=== PATIENT | female | born 1955 | race Caucasian/White ===

== ENCOUNTER 2017-06-02 10:03 | Emergency (ER) | payer OTHER ==
[~2017-06-02] VITALS: Ht 160 cm; Wt 104.0 kg
[~2017-06-02 10:03] MED LIST: CARDIZEM CD120 M1 PO; CITALOPRAM HBR20 MG; COMBIVENT RESPIM4 GM IH; CYCLOBENZAPRINE 10 M; DIGOXIN250 MCG PO; FLONASE16 G1 BOTH NARES; FLONASE16 GM; GABAPENTIN 300 MG; GLUCOPHAGE1000 MG PO; IBUPROFEN600 MG; JANUVIA25 M1 PO; K-DUR10 MEQ PO; LEVAQUIN500 MG PO; LIPITOR40 MG PO; LISINOPRIL-HCTZ 20-1; LORTAB 5-325 M1 EACH PO; LOVAZA1 GM; MEDROL DOSEPAK4 MG PO; MOTRIN800 MG PO; NEURONTIN300 MG PO; NICOTINE PATCH1 EAC2 TD; NORVASC10 MG PO; PEN-VEE K,VEET500 MG PO; PREDNISONE10 MG PO; PRISTIQ100 MG PO; SPIRIVA RESPIMAT4 GM IH; SYMBICORT60 INHALAT; SYMBICORT60 INHALAT IH; TYLENOL REGULA325 MG PO; ULTRACET1 TABLET PO; ULTRAM50 MG PO; XARELTO20 MG PO; ZESTRIL40 MG PO; ZOFRAN4 MG PO; ZYRTEC10 M3 PO
[2017-06-02] MEDS ORDERED: KEFLEX500 MG PO (13:11)
[2017-06-02 13:26] VITALS: BP 150/79
== END 2017-06-02 13:26 | disposition home or self-care (01) ==
LOC: EME 10:03
DX: S02.40CA Maxillary fracture, right side, initial encounter for closed fracture (principal); S90.32XA Contusion of left foot, initial encounter; S00.11XA Contusion of right eyelid and periocular area, initial encounter; S80.211A Abrasion, right knee, initial encounter; M79.602 Pain in left arm; M25.511 Pain in right shoulder; M54.2 Cervicalgia; Y04.0XXA Assault by unarmed brawl or fight, initial encounter; Y07.499 Other family member, perpetrator of maltreatment and neglect; I10 Essential (primary) hypertension; J44.9 Chronic obstructive pulmonary disease, unspecified; E11.9 Type 2 diabetes mellitus without complications; Z79.84 Long term (current) use of oral hypoglycemic drugs; Z79.82 Long term (current) use of aspirin; F17.200 Nicotine dependence, unspecified, uncomplicated
CPT/HCPCS: 70450; 70486; 72125; 73110; 73130; 73564; 73630; 99281; 99284

== ENCOUNTER 2017-08-18 02:47 | Inpatient (IN) | payer OTHER ==
[~2017-08-18] VITALS: Ht 160 cm; Wt 111.0 kg
[~2017-08-18 02:47] MED LIST changes: +KEFLEX500 MG PO
[2017-08-18 03:18] LABS: HEMATOCRIT 41.6 % (36.0-46.0); MCH 30.1 PG (29.0-34.0); MCHC 32.9 G/DL (30.0-36.0); MCV 91.4 FL (83-99); MEAN PLAT.VOLUME 11.4 uM^3 (9.5-12.4); PLATELET COUNT 185 K/uL (156-360); RBC DIS.WIDTH-CV 15.2 % (11.8-14.6); RBC DIS.WIDTH-SD 51.7 % (39-53); RED BLOOD COUNT 4.55 M/uL (3.80-5.20); WHITE BLOOD COUNT 12.8 K/uL (4.1-10.2)
[2017-08-18 03:24] LABS: INTER. NORMALIZED RATIO 0.9; PROTHROMBIN TIME 10.3 SEC (10.2-12.9)
[2017-08-18 03:27] LABS: PTT 29.8 SEC (25-37)
[2017-08-18 03:32] LABS: CHLORIDE 104 mEq/L (99-109); POTASSIUM 3.3 mEq/L (3.7-5.4); SODIUM 140 mEq/L (136-147)
[2017-08-18 03:35] LABS: GLUCOSE 229 mg/dL (70-99)
[2017-08-18 03:36] LABS: ANION GAP 15 MEQ/L (2-14); TOTAL BILIRUBIN 0.3 mg/dL (0.0-1.0)
[2017-08-18 03:38] LABS: ALKALINE PHOSPHATASE 109 IU/L (3-129); GFR ESTIMATE (CALCULATED) > 59 mL/min/
[2017-08-18 03:39] LABS: UREA NITROGEN (BUN) 24 mg/dL (9-23)
[2017-08-18 03:41] LABS: TROP-I INTERPRETATION NEGATIVE; TROPONIN-I 0.01 ng/mL (0.0-0.30)
[2017-08-18 03:42] LABS: LIPASE 47 U/L (1.0-51.0)
[2017-08-18] MEDS ORDERED: LITE COAT ASPI325 M1 PO (08:11)
[2017-08-18] MEDS ORDERED: GABAPENTIN300 MG PO (08:15)
[2017-08-18] MEDS ORDERED: AMARYL2 MG PO (08:17)
[2017-08-18] MEDS ORDERED: HYDROCHLOROTH12.5 M3 PO (08:18)
[2017-08-18 08:20] LABS: MAGNESIUM 1.8 mg/dL (1.3-2.7)
[2017-08-18] MEDS ORDERED: NEO-POLYMYXIN-H10 ML RIGHT EAR (08:20)
[2017-08-18] MEDS ORDERED: BUPROPION XL150 MG PO (08:20)
[2017-08-18] MEDS ORDERED: IBUPROFEN600 MG PO (08:21)
[2017-08-18] MEDS ORDERED: LOSARTAN POTAS100 MG PO (08:22)
[2017-08-18] MEDS ORDERED: TRAMADOL HCL50 MG PO (08:22)
[2017-08-18] MEDS ORDERED: KENALOG,ARISTOC80 GM TP (08:22)
[2017-08-18] MEDS ORDERED: VITAMIN D35000 UNIT PO (08:23)
[2017-08-18] MEDS ORDERED: OMEPRAZOLE20 MG PO (08:24)
[2017-08-18] MEDS ORDERED: BUSPIRONE HCL10 MG PO (08:25)
[2017-08-18] MEDS ORDERED: ASCORBIC ACID100 MG PO (08:25)
[2017-08-18 10:37] LABS: TROP-I INTERPRETATION NEGATIVE; TROPONIN-I 0.01 ng/mL (0.0-0.30)
[2017-08-18 15:17] LABS: POINT-OF-CARE METER ID UU13113747
[2017-08-18 15:40] VITALS: BP 134/64
[2017-08-18 16:31] LABS: TROP-I INTERPRETATION NEGATIVE; TROPONIN-I < 0.01 ng/mL (0.0-0.30)
[2017-08-18 17:17] LABS: POINT-OF-CARE METER ID UU14174216
[2017-08-18 19:00] VITALS: BP 156/66
[2017-08-18 21:38] LABS: TROP-I INTERPRETATION NEGATIVE; TROPONIN-I < 0.01 ng/mL (0.0-0.30)
[2017-08-18 22:00] LABS: GLUCOSE 472 mg/dL (70-99)
[2017-08-18 23:49] VITALS: BP 144/85
[2017-08-19 01:40] LABS: ADD MIUA? NO; BILIRUBIN NEGATIVE; BLOOD NEGATIVE; COLOR STRAW ((YELLOW)); GLUCOSE (STRIP) >=500; KETONES NEGATIVE; LEUKOCYTES NEGATIVE; NITRITE NEGATIVE; PROTEIN (STRIP) NEGATIVE; SPECIFIC GRAVITY 1.024 (1.000-1.030); UROBILINOGEN 0.2 MG/DL (0.2-1.0)
[2017-08-19 02:15] LABS: POINT-OF-CARE METER ID UU13113698
[2017-08-19 04:00] VITALS: BP 132/63
[2017-08-19 04:38] LABS: EOSINOPHIL (%) 0 % (0-5); HEMATOCRIT 37.5 % (36.0-46.0); IMMATURE GRANULOCYTE (%) 0.6 % (0.0-0.7); IMMATURE GRANULOCYTE COUNT 0.1 K/uL; INSTRUMENT ABS NEUTROPHIL CT 10.1 K/uL; LYMPHOCYTE COUNT 0.7 K/uL (1.0-2.8); MCH 29.8 PG (29.0-34.0); MCHC 32.5 G/DL (30.0-36.0); MCV 91.7 FL (83-99); MEAN PLAT.VOLUME 11.4 uM^3 (9.5-12.4); MONOCYTE (%) 2.3 % (3-12); MONOCYTE COUNT 0.3 K/uL (0-0.8); NEUTROPHIL (%) 90.5 % (45-76); NEUTROPHIL COUNT 10.1 K/uL (1.8-6.4); PLATELET COUNT 154 K/uL (156-360); RBC DIS.WIDTH-CV 15.1 % (11.8-14.6); RBC DIS.WIDTH-SD 51.1 % (39-53); RED BLOOD COUNT 4.09 M/uL (3.80-5.20); WHITE BLOOD COUNT 11.1 K/uL (4.1-10.2)
[2017-08-19 04:51] LABS: CHLORIDE 109 mEq/L (99-109); SODIUM 141 mEq/L (136-147)
[2017-08-19 04:53] LABS: GLUCOSE 314 mg/dL (70-99)
[2017-08-19 04:56] LABS: ALKALINE PHOSPHATASE 99 IU/L (3-129)
[2017-08-19 04:57] LABS: GFR ESTIMATE (CALCULATED) 53 mL/min/
[2017-08-19 04:58] LABS: UREA NITROGEN (BUN) 24 mg/dL (9-23)
[2017-08-19 05:09] LABS: ANION GAP 8 MEQ/L (2-14)
[2017-08-19 05:15] LABS: POTASSIUM 4.4 mEq/L (3.7-5.4); TOTAL BILIRUBIN 0.1 mg/dL (0.0-1.0)
[2017-08-19 06:25] LABS: POINT-OF-CARE METER ID UU13113781
[2017-08-19 06:53] LABS: Estimated Average Glucose 154 mg/dL (70-123)
[2017-08-19 07:25] VITALS: BP 145/73
[2017-08-19 07:52] LABS: POINT-OF-CARE METER ID UU14174216
[2017-08-19 10:51] LABS: POINT-OF-CARE METER ID UU14174216
[2017-08-19 11:08] VITALS: BP 145/68
[2017-08-19 11:40] LABS: POINT-OF-CARE METER ID UU14174216
[2017-08-19 15:37] VITALS: BP 129/74
[2017-08-19 16:21] LABS: POINT-OF-CARE METER ID UU14174216
[2017-08-19 19:52] VITALS: BP 169/74
[2017-08-19 20:53] LABS: POINT-OF-CARE METER ID UU14174216
[2017-08-19 22:58] VITALS: BP 163/81
[2017-08-20 04:27] VITALS: BP 139/67
[2017-08-20 07:57] LABS: POINT-OF-CARE METER ID UU13113698
[2017-08-20 08:10] VITALS: BP 146/67
[2017-08-20 11:41] LABS: POINT-OF-CARE METER ID UU13113698
[2017-08-20 12:37] LABS: ANION GAP 8 MEQ/L (2-14); CHLORIDE 104 MEQ/L (99-109); GFR ESTIMATE (CALCULATED) > 59 mL/min/; GLUCOSE 351 mg/dL (70-99); POTASSIUM 4.2 MEQ/L (3.7-5.4); SAMPLE HEMOLYSIS CHECK 0; SAMPLE ICTERIC CHECK 0; SAMPLE LIPEMIA CHECK 0; SODIUM 137 MEQ/L (136-147)
[2017-08-20 12:41] LABS: UREA NITROGEN (BUN) 37 mg/dL (9-23)
[2017-08-20 12:45] VITALS: BP 135/73
[2017-08-20] MEDS ORDERED: ELIQUIS5 MG PO (13:10)
[2017-08-20 15:40] VITALS: BP 147/70
[2017-08-20 16:25] LABS: POINT-OF-CARE METER ID UU14174216
[2017-08-20 19:16] VITALS: BP 138/82
[2017-08-20 21:18] LABS: POINT-OF-CARE METER ID UU14314088
[2017-08-20 23:07] VITALS: BP 166/72
[2017-08-21 04:00] VITALS: BP 161/77
[2017-08-21 05:53] LABS: EOSINOPHIL (%) 0 % (0-5); HEMATOCRIT 37.5 % (36.0-46.0); IMMATURE GRANULOCYTE (%) 0.7 % (0.0-0.7); IMMATURE GRANULOCYTE COUNT 0.1 K/uL; INSTRUMENT ABS NEUTROPHIL CT 11.5 K/uL; LYMPHOCYTE COUNT 1.2 K/uL (1.0-2.8); MCH 29.3 PG (29.0-34.0); MCHC 31.7 G/DL (30.0-36.0); MCV 92.4 FL (83-99); MEAN PLAT.VOLUME 11.2 uM^3 (9.5-12.4); MONOCYTE (%) 6.3 % (3-12); MONOCYTE COUNT 0.9 K/uL (0-0.8); NEUTROPHIL (%) 83.8 % (45-76); NEUTROPHIL COUNT 11.5 K/uL (1.8-6.4); PLATELET COUNT 163 K/uL (156-360); RBC DIS.WIDTH-CV 15.2 % (11.8-14.6); RBC DIS.WIDTH-SD 51.8 % (39-53); RED BLOOD COUNT 4.06 M/uL (3.80-5.20); WHITE BLOOD COUNT 13.7 K/uL (4.1-10.2)
[2017-08-21 06:22] LABS: ALKALINE PHOSPHATASE 79 IU/L (3-129); ANION GAP 9 MEQ/L (2-14); CHLORIDE 105 MEQ/L (99-109); GFR ESTIMATE (CALCULATED) 48 mL/min/; GLUCOSE 243 mg/dL (70-99); POTASSIUM 4.2 MEQ/L (3.7-5.4); SAMPLE HEMOLYSIS CHECK 0; SAMPLE ICTERIC CHECK 0; SAMPLE LIPEMIA CHECK 0; SODIUM 140 MEQ/L (136-147); TOTAL BILIRUBIN 0.2 MG/DL (0.0-1.0); UREA NITROGEN (BUN) 37 mg/dL (9-23)
[2017-08-21 07:48] VITALS: BP 149/76
[2017-08-21 07:58] LABS: POINT-OF-CARE METER ID UU13113781
[2017-08-21 11:14] VITALS: BP 104/60
[2017-08-21 12:03] LABS: POINT-OF-CARE METER ID UU14314088
[2017-08-21] MEDS ORDERED: NICOTINE PATCH1 EAC2 TD (15:04)
[2017-08-21] MEDS ORDERED: JANUVIA100 MG PO (15:04)
[2017-08-21] MEDS ORDERED: ASPIR 8181 M1 PO (15:04)
[2017-08-21] MEDS ORDERED: PREDNISONE10 MG PO (15:04)
[2017-08-21] MEDS ORDERED: CARDIZEM CD,CA240 MG PO (15:04)
[2017-08-21] MEDS ORDERED: SPIRIVA1 INHALATI IH (15:04)
[2017-08-21 16:29] LABS: POINT-OF-CARE METER ID UU14174216
[2017-08-21 16:38] VITALS: BP 139/89
== END 2017-08-21 17:05 | disposition home health service (06) | DRG 308 ==
LOC: EME 02:47 → 4EAST 07:53 → EDOF 07:53 → ENRESERV 08:09 → CANRESERV 12:45 → ENRESERV 12:48 → CANRESERV 12:48 → ENRESERV 13:10 → 4EAST 15:36
PROVIDERS: Emergency Medicine; Hospitalist; Internal Medicine
DX: I48.0 Paroxysmal atrial fibrillation (principal); J44.1 Chronic obstructive pulmonary disease with (acute) exacerbation; J18.9 Pneumonia, unspecified organism; J44.0 Chronic obstructive pulmonary disease with (acute) lower respiratory infection; E11.9 Type 2 diabetes mellitus without complications; I48.92 Unspecified atrial flutter; I10 Essential (primary) hypertension; E78.5 Hyperlipidemia, unspecified; R91.8 Other nonspecific abnormal finding of lung field; E04.2 Nontoxic multinodular goiter; G47.33 Obstructive sleep apnea (adult) (pediatric); F32.9 Major depressive disorder, single episode, unspecified; M79.7 Fibromyalgia; Z86.73 Personal history of transient ischemic attack (TIA), and cerebral infarction without residual deficits; F17.210 Nicotine dependence, cigarettes, uncomplicated; Z79.84 Long term (current) use of oral hypoglycemic drugs; Z82.49 Family history of ischemic heart disease and other diseases of the circulatory system
CPT/HCPCS: 71275; 80048; 80053; 81003; 82948; 83036; 83605; 83690; 83735; 83880; 84443; 84484; 84999; 85025; 85027; 85610; 85730; 87040; 87502; 90686; 93005; 94640; 94640 76; 94760; 94799; 99202; 99281; 99285; J0696; J1815; J1956; J2920; J3010; J3480; J7050; J7512